=== PATIENT | male | born 1975 | race African-American/Black ===

== ENCOUNTER 2017-02-11 13:00 | Emergency (ER) | payer SELFPAY ==
[~2017-02-11] VITALS: Ht 182.9 cm; Wt 77.1 kg
[2017-02-11 13:30] VITALS: BP 109/72
[2017-02-11] MEDS ORDERED: DIPHTH,PERTUSS(ACELL),TET TOX 0.5 ML DISP.SYRIN. VAX IM ONE (13:45)
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
== END 2017-02-11 14:00 | disposition home or self-care (01) ==
LOC: ER 13:00
DX: S41.111A Laceration without foreign body of right upper arm, initial encounter (principal); W22.8XXA Striking against or struck by other objects, initial encounter; Y93.01 Activity, walking, marching and hiking; Y92.89 Other specified places as the place of occurrence of the external cause; Y99.8 Other external cause status
CPT/HCPCS: 90471; 90715; 99283-25

== ENCOUNTER 2017-02-24 23:33 | Emergency (ER) | payer SELFPAY ==
[2017-02-24 23:35] VITALS: BP 122/71
[2017-02-25] MEDS ORDERED: NAPR500T PO
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
== END 2017-02-25 00:05 | disposition home or self-care (01) ==
LOC: ER 23:33
DX: S81.811A Laceration without foreign body, right lower leg, initial encounter (principal); W26.0XXA Contact with knife, initial encounter; Y93.89 Activity, other specified; Y92.89 Other specified places as the place of occurrence of the external cause; Y99.8 Other external cause status
CPT/HCPCS: 12001; 99283-25

== ENCOUNTER 2017-07-01 22:02 | Emergency (ER) | payer OTHER ==
[~2017-07-01] VITALS: Ht 182.9 cm; Wt 86.2 kg
[~2017-07-01 22:02] MED LIST: NAPR-683 PO
[2017-07-01 22:05] VITALS: BP 119/63
[2017-07-01] MEDS ORDERED: HYDROcodone/APAP 10/325 1 TAB TABLET PO ONE (23:00)
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
== END 2017-07-01 23:34 | disposition home or self-care (01) ==
LOC: ER 22:02
DX: M25.562 Pain in left knee (principal); W22.8XXA Striking against or struck by other objects, initial encounter; Y93.89 Activity, other specified; Y99.8 Other external cause status; Y92.481 Parking lot as the place of occurrence of the external cause
CPT/HCPCS: 73564; 99284